=== PATIENT | male | born 1955 | race Caucasian/White ===

== ENCOUNTER 2017-02-21 09:41 | Observation (INO) ==
--- NOTE | 2017-02-21 10:02 | Emergency Department Note ---
Neuro HPI - General Chief Complaint: Stroke Symptoms Stated Complaint: L sided droop an weakness Time Seen by Provider: 02/21/17 10:00 Source: patient, EMS Mode of arrival: EMS - History of Present Illness HPI Narrative: Sitting at home, noticed it was hot and went to get up to open a window or door. He was looking at the computer and he noticed left leg weakness, also his speech was slightly slurred and EMS was called. EMS reported slurred speech , left-sided facial droop, left arm weakness as well as left leg weakness. He was unable to stand on his left leg. His symptoms resolved pretty much as he was picked up by EMS and loaded onto the gurney. He does smoke one pack a day, history of NC, history of coronary disease, he normally is supposed to take one regular aspirin and he has not been taking this recently. On Anticoagulants: No - Related Data Home Medications: Home Medications Medication Instructions Recorded Confirmed No Known Home Meds [No Known Home 02/21/17 02/21/17 Meds] Allergies/Adverse Reactions: Allergies Allergy/AdvReac Type Severity Reaction Status Date / Time No Known Drug Allergies Allergy Unverified 02/21/17 09:48 Review of Systems All systems ED: reviewed and negative except as stated. Constitutional: Denies: fever, chills ENT ED: Denies: throat pain Cardiovascular: Denies: chest pain, palpitations Respiratory: Denies: cough Gastrointestinal: Denies: abdominal pain Neurological: Reports: weakness, numbness, paresthesias, abnormal gait. Denies : headache, confusion Hematological/Lymphatic: Denies: easy bleeding Allergic/Immunologic: Denies: facial swelling Past Medical History - Past Medical History Source: old records reviewed, nursing notes reviewed Medical history: Reports: coronary artery disease Surgical history ED: Reports: non-contributory Family history: Reports: CAD/NC - Social History smoking status: Current every day smoker Alcohol use: Reports: Rarely Drug use: Reports: none Physical Exam - General Limitations: no limitations General appearance: alert, in no apparent distress - Head Head exam: atraumatic, normocephalic, normal inspection - Eye Eye exam: Present: normal appearance, PERRL, EOMI. Absent: conjunctival injection - ENT ENT exam: normal exam, normal oropharynx, mucous membranes moist, TM's normal bilaterally, normal external ear exam - Neck Neck exam: Present: normal inspection, full ROM, trachea midline - Chest Chest inspection: Present: normal inspection, symmetric chest wall rise - Respiratory Respiratory exam: Present: normal lung sounds bilaterally. Absent: respiratory distress - Cardiovascular Cardiovascular exam: Present: regular rate, normal rhythm - Abdominal Exam Abdominal exam: Present: soft, normal bowel sounds. Absent: distention, tenderness - Extremities Exam Extremities exam: Present: normal inspection, full ROM - Back Exam Back exam: Present: normal inspection, full ROM. Absent: CVA tenderness (R), CVA tenderness (L), vertebral tenderness - Neurological Exam Neurological exam: Present: alert, oriented X3, CN II-XII intact, motor sensory deficit, reflexes normal, other (minimal weakness left hand as compared to the right side, he has full strength in his lower no facial droop.) - Psychiatric Psychiatric exam: Present: normal affect, normal mood - Skin Skin exam: Present: warm, dry, intact, normal color. Absent: rash, cyanosis, pallor Course - Reevaluation(s) Reevaluation #1: patient started on aspirin after h after head CT was read as negative. His symptoms did briefly recur but then spontaneously went away again. His ABCD score was 5, his stroke scale was 0-1. Vital Signs Temperature 98.2 F 02/21/17 09:43 Pulse Rate 87 02/21/17 09:43 Respiratory Rate 16 02/21/17 09:43 Blood Pressure 179/105 02/21/17 09:43 Pulse Oximetry (%) 97 02/21/17 09:43 Temperature 98.2 F 02/21/17 09:43 Pulse Rate 75 02/21/17 11:08 Respiratory Rate 26 H 02/21/17 11:08 Blood Pressure 160/84 02/21/17 11:01 Pulse Oximetry (%) 95 02/21/17 11:08 Neuro Symptoms/Deficit - MDM Narrative Medical decision making narrative: Final diagnosis is TIA. Blood pressure did come down to 150/87. This was without further intervention. Head CT was read as negative by Dr. Guzman, at this point he will be admitted for further stroke workup. Discussed with Dr. Morrow - Lab Data Lab results reviewed: Yes I reviewed the patient's lab results. Result diagrams: 02/21/17 09:50 02/21/17 09:50 Lab Results 02/21/17 02/21/17 02/21/17 Range/Units 09:50 09:50 09:50 WBC 7.9 (4.5-11.0) K/mcL RBC 4.73 (4.50-5.90) M/mcL Hgb 16.2 (13.5-16.5) g/dL Hct 47.8 (41.0-55.0) % POC Hct 49.0 (41.0-55.0) % MCV 101.2 H (80.0-100.0) fL MCH 34.3 H (26.0-34.0) pg MCHC 33.9 (31.0-36.0) g/dL RDW 14.9 H (11.5-14.5) % Plt Count 369 (140-440) K/mcL MPV 6.2 L (7.4-10.4) fL Gran % 65.7 (38.0-78.0) % Lymph % (Auto) 22.9 (15.5-49.0) % [place] % (Auto) 8.7 (1.0-12.0) % Eos % (Auto) 2.3 (0.0-7.0) % Baso % (Auto) 0.4 (0.0-2.0) % Gran # 5.2 (1.8-8.0) K/mcL Lymph # (Auto) 1.8 (1.5-4.8) K/mcL [place] # (Auto) 0.7 (0.1-0.9) K/mcL Eos # (Auto) 0.2 (0.0-0.7) K/mcL Baso # (Auto) 0 (0.0-0.3) K/mcL POC PT 12.3 (11.9-14.5) sec POC INR 1.0 (0.9-1.2) APTT 31 (20-37) sec POC Sodium 139 (133-145) mmol/L Sodium 137 (133-145) mmol/L POC Potassium 4.0 (3.3-5.1) mmol/L Potassium 4.0 (3.3-5.1) mmol/L POC Chloride 104 (96-108) mmol/L Chloride 101 (96-108) mmol/L Carbon Dioxide 22 (22-30) mmol/L POC Total CO2 24 (22-30) mmol/L Anion Gap 14.0 (8-16) POC BUN 11 (8-23) mg/dl BUN 12 (8-23) mg/dl Creatinine 1.1 (0.7-1.2) mg/dl POC Creatinine 1.2 (0.7-1.2) mg/dl GFR Calculation 71 Glucose 101 (70-105) mg/dL POC Glucose 102 (70-105) mg/dL Calcium 9.3 (8.6-10.4) mg/dl POC WB Ioniz Calcium 1.16 (1.16-1.32) mmol/L Total Bilirubin 0.3 (0.0-1.0) mg/dL AST 16 (0-37) U/l ALT 16 (0-40) U/l Alkaline Phosphatase 130 H (39-117) U/L Troponin T (0-0.03) ng/ml Total Protein 7.7 (5.9-8.4) gm/dL Albumin 3.9 (3.2-5.2) gm/dL Globulin 3.8 H (2.2-3.7) gm/dL Albumin/Globulin Ratio 1.0 (1.0-2.3) 02/21/17 Range/Units 09:50 WBC (4.5-11.0) K/mcL RBC (4.50-5.90) M/mcL Hgb (13.5-16.5) g/dL Hct (41.0-55.0) % POC Hct (41.0-55.0) % MCV (80.0-100.0) fL MCH (26.0-34.0) pg MCHC (31.0-36.0) g/dL RDW (11.5-14.5) % Plt Count (140-440) K/mcL MPV (7.4-10.4) fL Gran % (38.0-78.0) % Lymph % (Auto) (15.5-49.0) % [place] % (Auto) (1.0-12.0) % Eos % (Auto) (0.0-7.0) % Baso % (Auto) (0.0-2.0) % Gran # (1.8-8.0) K/mcL Lymph # (Auto) (1.5-4.8) K/mcL [place] # (Auto) (0.1-0.9) K/mcL Eos # (Auto) (0.0-0.7) K/mcL Baso # (Auto) (0.0-0.3) K/mcL POC PT (11.9-14.5) sec POC INR (0.9-1.2) APTT (20-37) sec POC Sodium (133-145) mmol/L Sodium (133-145) mmol/L POC Potassium (3.3-5.1) mmol/L Potassium (3.3-5.1) mmol/L POC Chloride (96-108) mmol/L Chloride (96-108) mmol/L Carbon Dioxide (22-30) mmol/L POC Total CO2 (22-30) mmol/L Anion Gap (8-16) POC BUN (8-23) mg/dl BUN (8-23) mg/dl Creatinine (0.7-1.2) mg/dl POC Creatinine (0.7-1.2) mg/dl GFR Calculation Glucose (70-105) mg/dL POC Glucose (70-105) mg/dL Calcium (8.6-10.4) mg/dl POC WB Ioniz Calcium (1.16-1.32) mmol/L Total Bilirubin (0.0-1.0) mg/dL AST (0-37) U/l ALT (0-40) U/l Alkaline Phosphatase (39-117) U/L Troponin T < 0.01 (0-0.03) ng/ml Total Protein (5.9-8.4) gm/dL Albumin (3.2-5.2) gm/dL Globulin (2.2-3.7) gm/dL Albumin/Globulin Ratio (1.0-2.3) Disposition Clinical Impression: TIA (transient ischemic attack) Disposition: Xfer As Outpt/Obs ([facility]) Condition: Undetermined
[2017-02-21] MEDS ORDERED: SIMVASTATIN 40 MG TABLET PO ONE (10:13)
[2017-02-21] MEDS ORDERED: ASPIRIN 81 MG TAB.CHEW ONE (10:14)
--- NOTE | 2017-02-21 10:17 | Cat Scan Report ---
CLINICAL INFORMATION: Left-sided weakness. Aphasia. Symptoms are improving COMPARISON: None. TECHNIQUE: Axial noncontrast-enhanced images through the brain. FINDINGS: No acute intracranial hemorrhage. No subdural or epidural hematoma. No subarachnoid hemorrhage. No intra-axial hematoma. No focal intra-axial attenuation abnormalities. No localized mass effect. No midline shift. Brain volume is normal. No hydrocephalus. Basilar cisterns are normal. No hyperdense middle cerebral artery sign. Brainstem and cerebellum are negative. No calvarial fracture. No lytic lesion. Skull base is negative IMPRESSION: Negative noncontrast enhanced brain CT scan Interpreted and Authenticated by: Polo Guzman 02/21/17
[2017-02-21] MEDS ORDERED: ASPIRIN 81 MG TAB.CHEW CHEWED ONE (10:25)
[2017-02-21 10:28] LABS: Basophils # (Auto) 0 K/mcL (0.0-0.3); Basophils % (Auto) 0.4 % (0.0-2.0); Eosinophils # (Auto) 0.2 K/mcL (0.0-0.7); Eosinophils % (Auto) 2.3 % (0.0-7.0); Granulocytes % (Auto) 65.7 % (38.0-78.0); Lymphocytes # (Auto) 1.8 K/mcL (1.5-4.8); Lymphocytes % (Auto) 22.9 % (15.5-49.0); Mean Cell Volume 101.2 fL (80.0-100.0); Mean Corpuscular HGB Conc 33.9 g/dL (31.0-36.0); Mean Corpuscular Hemoglobin 34.3 pg (26.0-34.0); Monocytes # (Auto) 0.7 K/mcL (0.1-0.9); Monocytes % (Auto) 8.7 % (1.0-12.0); Platelet Count 369 K/mcL (140-440); RBC 4.73 M/mcL (4.50-5.90); Red Cell Distribution Width 14.9 % (11.5-14.5)
[2017-02-21 10:51] LABS: ALT/SGPT 16 U/l (0-40); Albumin 3.9 gm/dL (3.2-5.2); Alkaline Phosphatase 130 U/L (39-117); Blood Urea Nitrogen 12 mg/dl (8-23)
[2017-02-21] MEDS ORDERED: LACTATED RINGERS 1,000 ML IV ONE (11:28)
[2017-02-21] MEDS ORDERED: ACETAMINOPHEN 325 MG TABLET PO PRN (12:14)
[2017-02-21] MEDS ORDERED: IPRATROPIUM/ALBUTEROL 3 ML AMPUL.NEB NEB PRN (12:14)
[2017-02-21] MEDS ORDERED: ONDANSETRON 4 MG/2 ML VIAL IV PRN (12:14)
[2017-02-21] MEDS ORDERED: NALOXONE HCL 0.4 MG/ML VIAL IV PRN (12:14)
[2017-02-21] MEDS ORDERED: oxyCODONE/APAP 5/325MG TABLET PO PRN (12:14)
--- NOTE | 2017-02-21 12:41 | Internal Med History&Physical ---
Medical - H&P: HPI Patient information: Note initiated : 02/21/17 at 12:38 pm Service Date, if different from initiated Date: [] Patient: Sandro Ingram a 61 y/o M admitted on 02/21/17 for L sided droop an weakness. Chief Complaint: [] History of present illness: Mr. Ingram is a 61 year old Male with h/o cad, s/p mi and stent plaement presents to the ER due to episode of weakness The patient was sitting in his house talking with his significant other, at around 9.10, the patient turned around to get up but noted that his legs were too weak to get up, his left leg had no strength, he also noted weakness in the left arm, his words were slurry, and he had some deviation of the face. The patients significant other called 911, and within 15-20 mins the patients symptoms had comletely resolved, his NIH score was 1 at the time he was in the ER. He also reported tingling numbness in the left arm and leg. The patient was fully aware of what was going on. The patient in the ER after the CT ntoed that he likely and another episode in which his face was deviated and he had some tingling numbness return, but this episode lasted only for a few minutes. Based on discussion with ER, tele stroke was not activated, he was asa and statin and admitted to the hospital for further management. The patient has only chr c ough, but denies any other symptom. - Constitutional Additional comments: CONSTITUTIONAL: No weight loss, fever, chills, weakness or fatigue. HEENT: Eyes: No visual loss, blurred vision, double vision or yellow sclerae. Ears, Nose, Throat: No hearing loss, sneezing, congestion, runny nose or sore throat. SKIN: No rash or itching. CARDIOVASCULAR: No chest pain, chest pressure or chest discomfort. No palpitations or edema. RESPIRATORY: No shortness of breath, chr smokers c ough present. GASTROINTESTINAL: No nausea, vomiting or diarrhea or constipation. No abdominal pain or blood in stools No Karen. GENITOURINARY: Denies Burning on urination. Blood. The weakness on left side as noted in HPI MUSCULOSKELETAL: No muscle, back pain, joint pain or stiffness. HEMATOLOGIC: No bleeding or bruising. No enlarged nodes PSYCHIATRIC: No depression or anxiety. ENDOCRINOLOGIC: No reports of sweating, cold or heat intolerance. No polyuria or polydipsia. ALLERGIES: No hives, eczema or rhinitis. Skin: No rash, no jaundice, cyanosis or pallor. Medical - H&P: PMH Medical history: h/o cad mi s/p stent, not taking aspirin (due to his own stubborness as per him) Surgical history: left shoulder surgery. Pertinent family history: mother diet in sleep due to some clot issue Father with rheumatic heart disease, s/p valve replacement and has pacemaker. No h/o cva in family. Social history: lives with significant other smoker, 50 pack yr, no etoh denies recreational drug use. Medical - H&P: Meds Home Medications Medication Instructions Recorded Confirmed Type No Known Home Meds [No Known Home 02/21/17 02/21/17 History Meds] Allergies Allergy/AdvReac Type Severity Reaction Status Date / Time No Known Drug Allergies Allergy Verified 02/21/17 12:15 Medical - H&P: Exam - Constitutional Vitals: Temp Pulse Resp BP Pulse Ox 98.2 F 64 23 H 161/89 95 02/21/17 09:43 02/21/17 11:33 02/21/17 11:33 02/21/17 11:31 02/21/17 11:33 Exam: GENERAL: The patient is a well-developed, well-nourished in no apparent distress. Is alert and oriented x3. VITAL SIGNS: Reviewed and as noted elsewhere. HEENT: Head is normocephalic and atraumatic. Extraocular muscles are intact. Pupils are equal, round, and reactive to light. Nares appeared normal. Mouth appears any without lesions. Mucous membranes are moist. NECK: Normal to inspection, Supple, No lymphadenopathy or thyromegaly. LUNGS: Air entry equal on both sides, no wheezing, crackles or rhonchi noted. No accessory muscles of respiration HEART: Regular rate and rhythm normal, S1 and S2 heard, no Gallop, S3 or Rub Noted, No Gross murmur heard. ABDOMEN: Soft, nontender, and nondistended. Positive bowel sounds. No hepatosplenomegaly was noted. EXTREMITIES: No cyanosis, clubbing, rash, lesions or edema. NEUROLOGIC: Cranial nerves II through XII are grossly intact. Motor and Sensory System Grossly Intact PSYCHIATRIC: Normal affect, Normal Mood. Appropriate Behavior. SKIN: No ulceration or wounds noted, No jaundice, No rash noted. Medical - H&P: Reslt - Labs CBC & Chem 7: 02/21/17 09:50 02/21/17 09:50 - EKG Data Prior EKG available for review: no EKG comments: 02/21/17 12:44 sinus rhythm q wave s in 2, 3 and avf, incomplete rbbb likely old inf mi 02/21/17 12:45 Medical - H&P: A/P - Narrative A/P Narrative: A/P TIA: 2 episodes high risk for repeat TIA, will get mri head, mra head and neck, echo, monitor on tele, ASA given, statin given, check lipid, and a1c, monitor bp for now, consider starting on keegan for bp if remains high. CAD: no cp, ekg shows no significant changes. on asa and statin, DVT hep sq Diet cardiac full code.
--- NOTE | 2017-02-21 12:54 | XRay Report ---
CLINICAL INFORMATION: Possible stroke. Cough. TECHNIQUE: AP portable upright chest x-ray COMPARISON: None. FINDINGS: Lungs are negative. No parenchymal infiltrate or mass. Heart size and vascularity are normal. No pulmonary edema. No pulmonary congestion. Christen and mediastinum are negative. IMPRESSION: Negative AP portable chest x-ray Interpreted and Authenticated by: oPlo Guzman 02/21/17
[2017-02-21 13:40] LABS: Appearance,Urine CLEAR; Bilirubin,Urine NEG (NEG); Color,Urine YELLOW; Glucose,Urine (UA) NEGATIVE (NEG); Leukocyte Esterase,Urine NEG /uL (NEG); Nitrate,Urine NEG (NEG); Protein,Urine NEG (NEG); Specific Gravity,Urine 1.011 (1.000-1.035); Urine Blood NEG mg/dL (<0.03); Urobilinogen,Urine NEG (NEG)
[2017-02-21 13:55] LABS: Hemoglobin A1C 5.5 % HGB (4.0-6.0)
[2017-02-21] MEDS: HEPARIN 5,000 UNIT/ML VIAL SQ SCH (20:51)
[2017-02-22 05:08] LABS: Basophils # (Auto) 0.1 K/mcL (0.0-0.3); Basophils % (Auto) 0.8 % (0.0-2.0); Eosinophils # (Auto) 0.3 K/mcL (0.0-0.7); Eosinophils % (Auto) 3.8 % (0.0-7.0); Granulocytes % (Auto) 60.2 % (38.0-78.0); Lymphocytes # (Auto) 1.8 K/mcL (1.5-4.8); Lymphocytes % (Auto) 26.8 % (15.5-49.0); Mean Cell Volume 100.5 fL (80.0-100.0); Mean Corpuscular HGB Conc 34.3 g/dL (31.0-36.0); Mean Corpuscular Hemoglobin 34.4 pg (26.0-34.0); Monocytes # (Auto) 0.6 K/mcL (0.1-0.9); Monocytes % (Auto) 8.4 % (1.0-12.0); Platelet Count 342 K/mcL (140-440); RBC 4.64 M/mcL (4.50-5.90); Red Cell Distribution Width 14.9 % (11.5-14.5)
[2017-02-22 05:50] LABS: ALT/SGPT 13 U/l (0-40); Albumin 3.6 gm/dL (3.2-5.2); Alkaline Phosphatase 122 U/L (39-117); Bilirubin,Direct < 0.2 mg/dL (0.0-0.3); Blood Urea Nitrogen 12 mg/dl (8-23); Gamma Glutamyl Transpeptidase 28 U/L (8-61); Magnesium 2.1 mg/dL (1.6-2.5); Uric Acid 5.6 mg/dL (2.5-8.0)
[2017-02-22] MEDS: HEPARIN 5,000 UNIT/ML VIAL SQ SCH (08:38)
[2017-02-22] MEDS ORDERED: ASPIRIN 325 MG ENTERIC COATED TABLET PO SCH (09:00)
--- NOTE | 2017-02-22 10:54 | Magnetic Resonance Report ---
CLINICAL INFORMATION: TIA TECHNIQUE: Sagittal, axial, coronal images of the brain both before and after intravenous administration of 10 mL gadolinium COMPARISON: Previous brain CT scan dated 02/21/2017 FINDINGS: Diffusion-weighted images demonstrate a very small focus of restricted diffusion in the right putamen. This measures 4 mm. There is a focal associated ADC abnormality. There is mild contrast enhancement. Appearance is consistent with an acute but not subacute lacunar infarction. There is a 2nd area of mildly increased signal intensity on diffusion-weighted images. There appears to be an associated ADC abnormality. This is at the vertex in the posterior right frontal lobe and appears cortical. This measures 10 mm. There may be mild associated enhancement although this is not definite. This abnormality is suspicious for a small focal infarction. There is diffuse white matter abnormality with multiple foci of increased signal intensity in the subcortical and periventricular white matter both hemispheres. Findings are consistent with small vessel ischemic change. No other focal areas of restricted diffusion or enhancement. No localized mass effect. No midline shift. White matter abnormality is prominent for age and clinical correlation for hypertension or diabetes recommended. Brainstem and cerebellum are negative Brain volume is within normal limits. No hydrocephalus. No extra-axial, intracranial abnormalities. No pathologic leptomeningeal or dural enhancement. Normal flow void within vessels at the base of the brain. There is inflammatory disease in the mastoid sinuses bilaterally, right worse than left. Skull base is otherwise negative. Paranasal sinuses are otherwise negative. IMPRESSION: 1. Acute but not hyperacute 4 mm lacunar infarction in the right putamen 2. Possible 10 mm infarction in the posterior right frontal lobe at the vertex. This is not a definite abnormality White matter abnormality is somewhat advanced for age. Clinical correlation for diabetes or hypertension recommended. Interpreted and Authenticated by: Polo Guzman 02/22/17
--- NOTE | 2017-02-22 11:22 | Magnetic Resonance Report ---
CLINICAL INFORMATION: TIA. Left-sided weakness. TECHNIQUE: 2-D [id number] imaging of the cervical great vessels. 10 mL gadolinium injected COMPARISON: None. FINDINGS: Origin of the left common carotid artery is suboptimally visualized but on source images appears normal. No stenosis. Common carotid arteries are negative bilaterally. Proximal internal carotid arteries are negative. No significant luminal irregularity. No stenosis. No ulcerated plaque. Cervical internal carotid arteries are negative and bilaterally symmetric. Vertebral arteries are negative. No stenosis. Aortic arch is not well visualized but there is no definite abnormality. Origins of the left subclavian artery, left common carotid artery, innominate artery, right common carotid artery, right subclavian artery are negative. IMPRESSION: Negative carotid MRA. No stenosis. No significant luminal irregularity or ulceration Interpreted and Authenticated by: Polo Guzman 02/22/17
--- NOTE | 2017-02-22 11:25 | Magnetic Resonance Report ---
CLINICAL INFORMATION: TIA. Left-sided weakness TECHNIQUE: 3-D [id number] imaging of the [place] COMPARISON: None. FINDINGS: Petrous, cavernous, supraclinoid segments of the internal carotid arteries are normal and bilaterally symmetric. M1 segments of the middle cerebral arteries are negative. No focal stenosis. A1 segments of the anterior cerebral arteries are normal. Intracranial vertebral arteries and basilar artery are negative. Posterior cerebral arteries and superior cerebellar arteries are negative. No intracranial aneurysm IMPRESSION: Negative MRA of the [place] Interpreted and Authenticated by: Polo Guzman 02/22/17
--- NOTE | 2017-02-22 11:49 | Discharge Summary ---
Medical - DS: Prov Patient information: Note initiated : 02/22/17 at 11:48 am Patient: Sandro Ingram a 62 y/o M admitted on 02/21/17 for L sided droop an weakness. Date of admission: 02/21/17 11:37 Discharge date: 02/22/17 Admitting clinician: Tonia Rucker Attending physician on discharge: Shanice Enriquez Medical - DS: Meds - Discharge Medications Prescriptions: Atorvastatin [Lipitor] 20 mg PO HS #30 tablet Active and Home Medications: Discharge medications: Lipitor 20 mg p.o. nightly Aspirin 325 mg p.o. daily Tylenol 650 mg p.o. every 6 hours as needed Previous home Medications: No Known Home Meds [No Known Home Meds] 02/21/17 [History Confirmed 02/21/17 Last Taken Unknown] Medical - DS: Hosp Hospital course: Mr. Ingram is a 62 year old M February 21, 2017:History of present illness: Mr. Ingram is a 61 year old Male with h/o cad, s/p mi and stent placement , presents to the ER due to episode of weakness The patient was sitting in his house talking with his significant other, at around 9.10, the patient turned around to get up but noted that his legs were too weak to get up, his left leg had no strength, he also noted weakness in the left arm, his words were slurry, and he had some deviation of the face. The patients significant other called 911, and within 15-20 mins the patients symptoms had completely resolved, his NIH score was 1 at the time he was in the ER. He also reported tingling numbness in the left arm and leg. The patient was fully aware of what was going on. The patient in the ER after the CT noted that he likely and another episode in which his face was deviated and he had some tingling numbness return, but this episode lasted only for a few minutes. Based on discussion with ER, tele stroke was not activated, he was asa and statin and admitted to the hospital for further management. February 22, 2017: Hospital course: The patient did well overnight. Vital signs were fairly stable. He has so far tolerated the initiation of aspirin and a statin. He feels well today, and denies any further numbness or tingling or weakness. He denies mental status changes or slurred speech. He otherwise denies fever or chills, headaches or dizziness, sore throat, chest pain or palpitations or shortness of breath, GI or symptoms. He does admit that he was still smoking up until yesterday. He promises to quit as of yesterday. On exam, he is a well-developed well-nourished man in no acute distress. Head is normocephalic atraumatic. Neck is supple without obvious lymphadenopathy or JVD. No bruits were noted. Cardiac exam shows regular rate and rhythm. Lungs are clear to auscultation. Abdomen is soft and nontender. Extremities show no edema. Neurologic exam: Patient is alert and oriented 3. Mood and affect appear normal. Cranial nerves are grossly intact. Motor strength appears symmetric and intact throughout. Cerebellar exam shows no donator drift. Finger to finger exam is intact. No tremors noted. Exam is otherwise grossly nonfocal. - Narrative A/P Narrative: #1. Neuro. -The patient is status post TIA 2. He has known vascular disease, and was not taking aspirin or a statin at home. Lipitor 20 mg nightly and aspirin 325 mg daily have been initiated. The patient is strongly encouraged to be compliant with medications. He is strongly discouraged from continuing smoking. -He will need to see his primary care physician in the next week or so for recheck and to follow-up on blood pressure. Blood pressure was high yesterday, but is back to normal today. Some consideration could be given to starting him on an SONIA inhibitor with or without HCTZ, to further lower his risk of stroke. Echocardiogram and MRA of his brain and neck did not show any obvious source for TIA/stroke. #2. CAD: no cp, ekg shows no significant changes. Continue on asa and statin. #3. DVT reflexes: Hep sq -Diet cardiac #4. Full code. #5. MCV is elevated. Consider adding a B complex supplement, or multivitamin, or checking a B12 and folate level. Discharge diagnosis: TIA 2. Cardiovascular and cerebrovascular disease. Hyperlipidemia Time spent discussing smoking cessation with patient: 3 to 10 minutes - Time Spent with Patient Total time spent providing and/or coordinating discharge services: Medical - DS: Exam - Constitutional Vitals: Vital Signs Temp Pulse Pulse Resp BP BP Pulse Ox 02/22/17 10:41 137/86 02/22/17 08:00 97.6 F 58 L 16 95 02/22/17 04:00 98.7 F 16 146/78 92 02/22/17 00:00 98.3 F 16 130/81 92 02/21/17 20:00 98.4 F 12 152/78 152/78 91 02/21/17 18:53 64 95 02/21/17 16:00 151/84 02/21/17 15:41 96.9 F L 16 96 02/21/17 12:00 97.4 F 74 18 153/79 94 02/21/17 11:55 97.4 F 74 18 153/79 94 Intake and Output 02/21/17 02/22/17 02/22/17 21:59 05:59 13:59 Intake Total 240 / 240 Output Total 875 / 875 325 / 325 Balance -635 / -635 -325 / -325 Intake: Oral 240 / 240 Output: Void Amount 875 / 875 325 / 325 Other: Meal Dinner Percent of Meal Consumed 100% Feeding Ability Independent Weight 158 lb 14.4 oz Medical - DS: Data Labs on day of discharge: Labs from last 24 hours 02/22/17 02/22/17 02/21/17 04:08 04:08 13:26 WBC 6.8 RBC 4.64 Hgb 16.0 Hct 46.7 MCV 100.5 H MCH 34.4 H MCHC 34.3 RDW 14.9 H Plt Count 342 MPV 6.4 L Gran % 60.2 Lymph % (Auto) 26.8 Petroleum % (Auto) 8.4 Eos % (Auto) 3.8 Baso % (Auto) 0.8 Gran # 4.1 Lymph # (Auto) 1.8 Petroleum # (Auto) 0.6 Eos # (Auto) 0.3 Baso # (Auto) 0.1 Sodium 136 Potassium 4.4 Chloride 103 Carbon Dioxide 23 Anion Gap 10.0 BUN 12 Creatinine 1.1 GFR Calculation 71 Glucose 91 Uric Acid 5.6 Calcium 9.0 Phosphorus 2.7 Magnesium 2.1 Total Bilirubin 0.5 Direct Bilirubin < 0.2 GGT 28 AST 15 ALT 13 Alkaline Phosphatase 122 H Lactate Dehydrogenase 179 Total Protein 7.2 Albumin 3.6 Globulin 3.6 Albumin/Globulin Ratio 1.0 Triglycerides 200 H Urine Color Yellow Urine Appearance Clear Urine pH 6.0 Ur Specific [place] 1.011 Urine Protein Neg Urine Glucose (UA) Negative Urine Ketones Neg Urine Occult Blood Neg Urine Nitrate Neg Urine Bilirubin Neg Urine Urobilinogen Neg Ur Leukocyte Esterase Neg Ur Culture Indicated? No Hemoglobin A1c was normal at 5.5%. Troponin was normal at less than 0.01 Total cholesterol was elevated at 204, LDL cholesterol above goal at 127, non- HDL cholesterol is elevated at 156. HDL is normal at 48. TSH was normal at 0.89 Urinalysis was normal. MRSA screen was negative. Echocardiogram shows normal size left ventricle, with mildly reduced LV function and ejection fraction of 40-45%. There is hypokinesis of the basal to apical inferolateral wall, and borderline aortic root dilation. No vegetations are reported. EKG: Shows normal sinus rhythm at a rate of 86. Left axis deviation and left anterior fascicular block are noted. Inferior Q waves are noted. No acute ischemic changes are noted. Chest x-ray is read as normal. Neck MRA: Is negative for stenosis or ulceration. Brain MRA is read as normal. MRI of the brain does show subacute 4 mm lacunar infarct of the right putamen. Possible 10 mm infarction in the posterior right frontal lobe at the vertex, but this is not definite. White matter abnormalities somewhat advanced for age. Head CT without contrast was negative. Medical - DS: A/P - Patient/Caregiver Discharge Instructions Activity: increase activity as tolerated Diet: Low Sodium (2gm) Additional Instructions: 1. You appear to have had a TIA, "mini stroke". -Please take aspirin 325 mg every day. -Please take Lipitor or another statin drug, every evening, from now on. -You absolutely need to stop smoking immediately. 2. Please follow-up with your primary care physician to recheck on your symptoms, and to be sure your blood pressure remains normal. #3. Your red blood cell count is mildly abnormal, with large red blood cells. He may be deficient in either vitamin B12 or folate. Consider adding either a B complex supplement or a multivitamin, to your daily regimen of pills. Prescriptions: Atorvastatin [Lipitor] 20 mg PO HS #30 tablet - Follow up Plan Follow up with: Tati Reyes MD [Physician] - 03/10/17 11:00 am (Please arrive 15 min. early.) Disposition: Home, Self-Care Prognosis: Good Rehab Potential: Good Overall status at discharge: patient is back to baseline Medical - DS: Qual - VTE Deep Vein Thrombosis/Pulmonary Embolism Present on Admission: No
== END 2017-02-22 13:55 | disposition home or self-care (01) ==
LOC: ED 09:41 → ICU 09:41 → SUATTDRO 11:37 → ICU 11:59
PROVIDERS: ADMIT Internal Medicine; ATTEND Internal Medicine

== ENCOUNTER 2024-12-25 14:54 | Observation (INO) ==
[2024-12-25] MEDS ORDERED: IOPAMIDOL 100 ML BOTTLE IV ONE (14:55)
[2024-12-25] MEDS: ONDANSETRON 4 MG/2 ML VIAL IV ONE (15:59)
[2024-12-25] MEDS: 0.9 % SODIUM CHLORIDE 1,000 ML IV ONE (15:59)
[2024-12-25 16:30] LABS: Basophils # (Auto) 0.01 K/mcL (0.00-0.30); Basophils % (Auto) 0.1 % (0.0-2.0); Eosinophils # (Auto) 0 K/mcL (0.00-0.70); Eosinophils % (Auto) 0 % (0.0-7.0); Hematocrit 45.7 % (40.1-51.0); Hemoglobin 14.3 g/dL (13.7-17.5); Lymphocytes # (Auto) 0.73 K/mcL (1.50-4.80); Lymphocytes % (Auto) 5.1 % (15.5-49.0); Mean Cell Volume 92.5 fL (80.0-100.0); Mean Corpuscular HGB Conc 31.3 g/dL (31.0-36.0); Mean Platelet Volume 8.6 fL (8.8-12.5); Monocytes # (Auto) 0.81 K/mcL (0.10-0.90); Monocytes % (Auto) 5.6 % (1.0-12.0); Neutrophils % (Auto) 89.1 % (38.0-78.0); Platelet Count 349 K/mcL (140-440); RBC 4.94 M/mcL (4.63-6.08); Red Cell Distribution Width 16.2 % (11.5-14.5); WBC 14.3 K/mcL (4.5-11.0)
[2024-12-25 17:03] LABS: ALT/SGPT 9 U/L (<40); AST/SGOT 22 U/L (<40); Albumin 4.3 gm/dL (3.2-5.2); Albumin/Globulin Ratio 0.8 (1.0-2.3); Alkaline Phosphatase 189 U/L (39-117); Bilirubin,Total 0.4 mg/dL (0.1-1.0); Blood Urea Nitrogen 17 mg/dL (8-23); Calcium 10.5 mg/dL (8.6-10.4); Carbon Dioxide 21 mmol/L (22-30); Chloride 100 mmol/L (96-108); Globulin 5.3 gm/dL (2.2-3.7); Glomerular Filtration Rate 60; Glucose 126 mg/dL (70-105); Potassium 3.9 mmol/L (3.3-5.1); Sodium 138 mmol/L (133-145)
[2024-12-25] MEDS: morphine 2 MG/ML VIAL IV PRN (19:17)
[2024-12-25] MEDS: PIPERACILLIN SODIUM/TAZOBACTAM 4.5 GM in DEXTROSE 5% IN WATER 50 ML IV ONE (19:18)
[2024-12-26] MEDS: 0.9 % SODIUM CHLORIDE 1,000 ML IV SCH (03:16)
[2024-12-26] MEDS: ONDANSETRON 4 MG/2 ML VIAL IV ONE (04:02)
[2024-12-26] MEDS ORDERED: ACETAMINOPHEN 500 MG TABLET PO PRN (08:06)
[2024-12-26] MEDS ORDERED: morphine 2 MG/ML VIAL IV PRN (08:07)
[2024-12-26 08:49] LABS: ALT/SGPT 7 U/L (<40); AST/SGOT 15 U/L (<40); Albumin 3.1 gm/dL (3.2-5.2); Albumin/Globulin Ratio 0.8 (1.0-2.3); Alkaline Phosphatase 134 U/L (39-117); Bilirubin,Direct 0.2 mg/dL (<0.3); Bilirubin,Total 0.5 mg/dL (0.1-1.0); Blood Urea Nitrogen 16 mg/dL (8-23); Calcium 9.1 mg/dL (8.6-10.4); Carbon Dioxide 22 mmol/L (22-30); Chloride 105 mmol/L (96-108); Globulin 3.8 gm/dL (2.2-3.7); Glomerular Filtration Rate 60; Glucose 111 mg/dL (70-105); Lactate Dehydrogenase 140 U/L (135-225); Potassium 3.9 mmol/L (3.3-5.1); Sodium 136 mmol/L (133-145); Triglycerides 90 mg/dL (<150); Uric Acid 4.8 mg/dL (2.5-8.0)
[2024-12-26 08:58] LABS: Basophils # (Auto) 0.03 K/mcL (0.00-0.30); Basophils % (Auto) 0.2 % (0.0-2.0); Eosinophils # (Auto) 0.07 K/mcL (0.00-0.70); Eosinophils % (Auto) 0.6 % (0.0-7.0); Hematocrit 38.2 % (40.1-51.0); Hemoglobin 11.7 g/dL (13.7-17.5); Lymphocytes # (Auto) 1.15 K/mcL (1.50-4.80); Lymphocytes % (Auto) 9.5 % (15.5-49.0); Mean Cell Volume 93.9 fL (80.0-100.0); Mean Corpuscular HGB Conc 30.6 g/dL (31.0-36.0); Mean Platelet Volume 8.5 fL (8.8-12.5); Monocytes % (Auto) 8.3 % (1.0-12.0); Neutrophils % (Auto) 81.3 % (38.0-78.0); Platelet Count 260 K/mcL (140-440); RBC 4.07 M/mcL (4.63-6.08); Red Cell Distribution Width 16.8 % (11.5-14.5); WBC 12.1 K/mcL (4.5-11.0)
[2024-12-26] MEDS: AMPICILLIN SODIUM/SULBACTAM NA 3 GM in 0.9 % SODIUM CHLORIDE 100 ML IV SCH (09:14)
[2024-12-26] MEDS: IPRATROPIUM/ALBUTEROL 3 ML AMPUL.NEB NEB SCH (12:50)
[2024-12-26] MEDS: HYDROcodone/APAP 5/325MG TABLET PO PRN (12:55)
[2024-12-27] MEDS: ONDANSETRON 4 MG/2 ML VIAL IV PRN (06:55)
[2024-12-27 09:41] LABS: Basophils # (Auto) 0.05 K/mcL (0.00-0.30); Basophils % (Auto) 0.4 % (0.0-2.0); Eosinophils # (Auto) 0.17 K/mcL (0.00-0.70); Eosinophils % (Auto) 1.5 % (0.0-7.0); Hematocrit 36.3 % (40.1-51.0); Hemoglobin 11.1 g/dL (13.7-17.5); Lymphocytes % (Auto) 8.5 % (15.5-49.0); Mean Cell Volume 93.6 fL (80.0-100.0); Mean Corpuscular HGB Conc 30.6 g/dL (31.0-36.0); Mean Platelet Volume 8.3 fL (8.8-12.5); Monocytes # (Auto) 0.92 K/mcL (0.10-0.90); Monocytes % (Auto) 7.8 % (1.0-12.0); Neutrophils % (Auto) 81.6 % (38.0-78.0); Platelet Count 244 K/mcL (140-440); RBC 3.88 M/mcL (4.63-6.08); Red Cell Distribution Width 16.6 % (11.5-14.5); WBC 11.7 K/mcL (4.5-11.0)
[2024-12-27 10:04] LABS: ALT/SGPT 7 U/L (<40); AST/SGOT 14 U/L (<40); Albumin 3.2 gm/dL (3.2-5.2); Albumin/Globulin Ratio 0.8 (1.0-2.3); Alkaline Phosphatase 129 U/L (39-117); Bilirubin,Direct 0.3 mg/dL (<0.3); Bilirubin,Total 0.5 mg/dL (0.1-1.0); Blood Urea Nitrogen 14 mg/dL (8-23); Calcium 9.1 mg/dL (8.6-10.4); Carbon Dioxide 23 mmol/L (22-30); Chloride 105 mmol/L (96-108); Globulin 3.8 gm/dL (2.2-3.7); Glomerular Filtration Rate 67; Glucose 106 mg/dL (70-105); Lactate Dehydrogenase 142 U/L (135-225); Potassium 3.7 mmol/L (3.3-5.1); Sodium 138 mmol/L (133-145); Triglycerides 95 mg/dL (<150); Uric Acid 4.3 mg/dL (2.5-8.0)
[2024-12-27] MEDS: ENOXAPARIN 40 MG/0.4 ML SYRINGE SQ SCH (12:36)
[2024-12-27] MEDS: ALBUTEROL SULFATE 2.5 MG/3 ML NEBULIZER NEB PRN (22:00)
[2024-12-28 06:52] LABS: Basophils # (Auto) 0.02 K/mcL (0.00-0.30); Basophils % (Auto) 0.2 % (0.0-2.0); Eosinophils # (Auto) 0.26 K/mcL (0.00-0.70); Eosinophils % (Auto) 2.9 % (0.0-7.0); Hematocrit 34.6 % (40.1-51.0); Hemoglobin 10.6 g/dL (13.7-17.5); Lymphocytes # (Auto) 0.97 K/mcL (1.50-4.80); Mean Cell Volume 94.5 fL (80.0-100.0); Mean Corpuscular HGB Conc 30.6 g/dL (31.0-36.0); Monocytes # (Auto) 0.68 K/mcL (0.10-0.90); Monocytes % (Auto) 7.7 % (1.0-12.0); Neutrophils % (Auto) 78.2 % (38.0-78.0); Platelet Count 252 K/mcL (140-440); RBC 3.66 M/mcL (4.63-6.08); Red Cell Distribution Width 16.8 % (11.5-14.5); WBC 8.8 K/mcL (4.5-11.0)
[2024-12-28 07:40] LABS: ALT/SGPT 13 U/L (<40); AST/SGOT 20 U/L (<40); Albumin 2.8 gm/dL (3.2-5.2); Albumin/Globulin Ratio 0.7 (1.0-2.3); Alkaline Phosphatase 157 U/L (39-117); Bilirubin,Direct 0.2 mg/dL (<0.3); Bilirubin,Total 0.4 mg/dL (0.1-1.0); Blood Urea Nitrogen 13 mg/dL (8-23); Carbon Dioxide 24 mmol/L (22-30); Chloride 106 mmol/L (96-108); Globulin 4.2 gm/dL (2.2-3.7); Glomerular Filtration Rate 60; Glucose 108 mg/dL (70-105); Lactate Dehydrogenase 316 U/L (135-225); Phosphorous 3.5 mg/dL (2.5-4.5); Potassium 3.7 mmol/L (3.3-5.1); Sodium 140 mmol/L (133-145); Triglycerides 89 mg/dL (<150); Uric Acid 4.6 mg/dL (2.5-8.0)
[2024-12-28 08:45] VITALS: O2SAT 93
[2024-12-28] MEDS: AMOXICILLIN/POTASSIUM CLAV 875 MG TABLET PO SCH (10:58)
[2024-12-28 12:38] VITALS: TEMP 97.3
== END 2024-12-28 13:25 | disposition home health service (06) ==
LOC: ED 14:54 → MEDSUR 14:54
PROVIDERS: ADMIT Internal Medicine; ATTEND Internal Medicine

== ENCOUNTER 2025-05-18 04:10 | Inpatient (IN) ==
[2025-05-18] MEDS: ONDANSETRON 4 MG/2 ML VIAL IV ONE (04:28)
[2025-05-18 05:09] LABS: Basophils # (Auto) 0.03 K/mcL (0.00-0.30); Basophils % (Auto) 0.4 % (0.0-2.0); Eosinophils # (Auto) 0.32 K/mcL (0.00-0.70); Eosinophils % (Auto) 4.6 % (0.0-7.0); Hematocrit 35.5 % (40.1-51.0); Hemoglobin 11.6 g/dL (13.7-17.5); Lymphocytes # (Auto) 1.03 K/mcL (1.50-4.80); Lymphocytes % (Auto) 14.7 % (15.5-49.0); Mean Corpuscular HGB Conc 32.7 g/dL (31.0-36.0); Monocytes # (Auto) 0.55 K/mcL (0.10-0.90); Monocytes % (Auto) 7.8 % (1.0-12.0); Neutrophils % (Auto) 72.4 % (38.0-78.0); Platelet Count 248 K/mcL (140-440); RBC 4.04 M/mcL (4.63-6.08); WBC 7.0 K/mcL (4.5-11.0)
[2025-05-18 05:52] LABS: Anion Gap 11.0 (8.0-16.0); Blood Urea Nitrogen 19 mg/dL (8-23); Calcium 8.4 mg/dL (8.6-10.4); Carbon Dioxide 21 mmol/L (22-30); Chloride 108 mmol/L (96-108); Glucose 107 mg/dL (70-105); Potassium 3.8 mmol/L (3.3-5.1); Sodium 140 mmol/L (133-145)
[2025-05-18 06:33] LABS: INR 1.0 (0.9-1.1); Prothrombin Time 14.0 sec (11.9-14.5)
[2025-05-18] MEDS: DIAZEPAM 10 MG/2 ML SYRINGE IV ONE (06:56)
[2025-05-18] MEDS ORDERED: HYDROmorphone 0.5 MG/0.5 ML SYRINGE IV PRN ×2 (07:12→14:50)
[2025-05-18] MEDS ORDERED: ACETAMINOPHEN 325 MG TABLET PO PRN (07:12)
[2025-05-18] MEDS ORDERED: ONDANSETRON 4 MG/2 ML VIAL IV PRN ×3 (07:12→14:50)
[2025-05-18] MEDS ORDERED: DIAZEPAM 10 MG/2 ML SYRINGE IV PRN (07:12)
[2025-05-18] MEDS ORDERED: NALOXONE HCL 0.4 MG/ML VIAL IV PRN ×2 (07:12→14:50)
[2025-05-18] MEDS: HYDROmorphone 0.5 MG/0.5 ML SYRINGE IV ONE (07:33)
[2025-05-18] MEDS ORDERED: POTASSIUM CHLORIDE 40 MEQ in DEXTROSE 5% IN WATER 500 ML IV PRN (08:24)
[2025-05-18] MEDS ORDERED: MAGNESIUM SULFATE 2 GM/50 ML BAG IV PRN (08:24)
[2025-05-18] MEDS ORDERED: POLYETHYLENE GLYCOL 3350 17 GM PACKET PO PRN ×2 (08:24→14:40)
[2025-05-18] MEDS ORDERED: METOCLOPRAMIDE 10 MG/2 ML VIAL IV PRN (08:24)
[2025-05-18] MEDS ORDERED: POTASSIUM CHLORIDE 20 MEQ TABLET PO PRN ×2 (08:24)
[2025-05-18] MEDS ORDERED: SENNOSIDES 1 TABLET PO PRN (08:24)
[2025-05-18] MEDS ORDERED: IPRATROPIUM/ALBUTEROL 3 ML AMPUL.NEB NEB PRN (08:24)
[2025-05-18] MEDS ORDERED: LABETALOL HCL 20 MG/4 ML VIAL IV PRN (08:24)
[2025-05-18] MEDS: 0.9 % SODIUM CHLORIDE 1,000 ML IV SCH (08:32)
[2025-05-18] MEDS: DOCUSATE SODIUM 100 MG CAPSULE PO SCH ×2 (08:32→20:10)
[2025-05-18] MEDS: METHOCARBAMOL 1,000 MG/10 ML VIAL IV PRN ×2 (09:04→15:31)
[2025-05-18] MEDS ORDERED: fentaNYL 100 MCG/2 ML VIAL ONE (12:32)
[2025-05-18] MEDS ORDERED: PROPOFOL 200 MG/20 ML VIAL IV ONE (12:32)
[2025-05-18] MEDS ORDERED: DEXAMETHASONE 10 MG/ML VIAL ONE (12:34)
[2025-05-18] MEDS ORDERED: LIDOCAINE 2% PF 5 ML VIAL ONE (12:34)
[2025-05-18] MEDS ORDERED: TRANEXAMIC ACID 1,000 MG/10 ML VIAL ONE (12:34)
[2025-05-18] MEDS ORDERED: GLYCOPYRROLATE 0.2 MG/ML VIAL IV ONE (12:34)
[2025-05-18] MEDS ORDERED: ONDANSETRON 4 MG/2 ML VIAL ONE (12:34)
[2025-05-18] MEDS ORDERED: MAGNESIUM SULFATE 2 GM/50 ML BAG IV ONE (12:35)
[2025-05-18] MEDS ORDERED: FAMOTIDINE/PF 20 MG/2 ML VIAL IV ONE (12:35)
[2025-05-18] MEDS ORDERED: HYDROmorphone 0.5 MG/0.5 ML SYRINGE ONE (13:08)
[2025-05-18] MEDS: VANCOMYCIN 1,500 MG in 0.9 % SODIUM CHLORIDE 500 ML IV SCH (13:40)
[2025-05-18] MEDS: ceFAZolin 2 GM in DEXTROSE 5% IN WATER 50 ML IV SCH ×2 (13:45→18:39)
[2025-05-18] MEDS ORDERED: ePHEDrine 50 MG/5 ML SYRINGE (ANEST) IV ONE (14:02)
[2025-05-18] MEDS ORDERED: ESMOLOL 100 MG/10 ML VIAL IV ONE (14:09)
[2025-05-18] MEDS ORDERED: VASOPRESSIN 20 UNIT/ML VIAL ONE (14:09)
[2025-05-18] MEDS ORDERED: MAGNESIUM HYDROXIDE 30 ML ORAL.SUSP PO PRN (14:40)
[2025-05-18] MEDS ORDERED: BENZOCAINE/MENTHOL 1 LOZENGE PO PRN ×2 (14:40→14:50)
[2025-05-18] MEDS ORDERED: FLEETS ADULT 1 DOSE ENEMA PR PRN (14:40)
[2025-05-18] MEDS ORDERED: BISACODYL 10 MG SUPP.RECT PR PRN (14:40)
[2025-05-18] MEDS ORDERED: ALBUTEROL SULFATE 60 PUFF INHALER ONE (14:49)
[2025-05-18] MEDS ORDERED: fentaNYL 100 MCG/2 ML VIAL IV PRN (14:50)
[2025-05-18] MEDS ORDERED: LACTATED RINGERS 250 ML IV PRN (14:50)
[2025-05-18] MEDS: ACETAMINOPHEN 1,000 MG/100 ML BAG IV ONE (15:02)
[2025-05-18] MEDS: IPRATROPIUM/ALBUTEROL 3 ML AMPUL.NEB NEB PRN (16:17)
[2025-05-18] MEDS ORDERED: DEXMEDETOMIDINE 400 MCG in PREMIX 1 BAG IV PRN (17:15)
[2025-05-18] MEDS: GABAPENTIN 300 MG CAPSULE PO SCH (17:24)
[2025-05-18] MEDS: 0.9 % SODIUM CHLORIDE 10 ML SYRINGE IV SCH (17:51)
[2025-05-18] MEDS: LACTATED RINGERS 1,000 ML IV SCH (18:40)
[2025-05-18] MEDS: SENNOSIDES 1 TABLET PO SCH (20:10)
[2025-05-18] MEDS: ATORVASTATIN 20 MG TABLET PO SCH (20:41)
[2025-05-18] MEDS: MIRTAZAPINE 15 MG TABLET PO SCH (20:41)
[2025-05-18] MEDS: TAMSULOSIN 0.4 MG CAPSULE PO SCH (20:41)
[2025-05-18] MEDS: MUPIROCIN OINT 2% 22GM NARES SCH (20:42)
[2025-05-18] MEDS: ACETAMINOPHEN 325 MG TABLET PO PRN (20:42)
[2025-05-19 05:55] LABS: Basophils # (Auto) 0 K/mcL (0.00-0.30); Basophils % (Auto) 0 % (0.0-2.0); Eosinophils # (Auto) 0 K/mcL (0.00-0.70); Eosinophils % (Auto) 0 % (0.0-7.0); Hematocrit 35.0 % (40.1-51.0); Hemoglobin 10.5 g/dL (13.7-17.5); Lymphocytes # (Auto) 0.56 K/mcL (1.50-4.80); Lymphocytes % (Auto) 6.2 % (15.5-49.0); Mean Corpuscular HGB Conc 30.0 g/dL (31.0-36.0); Monocytes # (Auto) 0.50 K/mcL (0.10-0.90); Monocytes % (Auto) 5.6 % (1.0-12.0); Neutrophils % (Auto) 88.1 % (38.0-78.0); Platelet Count 245 K/mcL (140-440); RBC 3.93 M/mcL (4.63-6.08); WBC 9.0 K/mcL (4.5-11.0)
[2025-05-19 06:04] LABS: ALT/SGPT 30 U/L (<40); AST/SGOT 40 U/L (<40); Albumin 3.3 gm/dL (3.2-5.2); Albumin/Globulin Ratio 0.8 (1.0-2.3); Alkaline Phosphatase 142 U/L (39-117); Anion Gap 11.0 (8.0-16.0); Bilirubin,Direct < 0.2 mg/dL (0-0.3); Bilirubin,Total 0.3 mg/dL (0.1-1.0); Blood Urea Nitrogen 18 mg/dL (8-23); Calcium 8.9 mg/dL (8.6-10.4); Carbon Dioxide 20 mmol/L (22-30); Chloride 106 mmol/L (96-108); Globulin 3.9 gm/dL (2.2-3.7); Glucose 124 mg/dL (70-105); Phosphorous 3.1 mg/dL (2.5-4.5); Potassium 4.4 mmol/L (3.3-5.1); Sodium 137 mmol/L (133-145); Triglycerides 59 mg/dL (<150); Uric Acid 5.7 mg/dL (2.5-8.0)
[2025-05-19] MEDS ORDERED: PROPOFOL 200 MG/20 ML VIAL IV ONE (07:07)
[2025-05-19] MEDS: 0.9 % SODIUM CHLORIDE 1,000 ML IV ONE (08:00)
[2025-05-19] MEDS: PANTOPRAZOLE 40 MG TABLET PO SCH (08:08)
[2025-05-19] MEDS: FUROSEMIDE 100 MG/10 ML VIAL IV SCH (08:48)
[2025-05-19] MEDS: METOPROLOL SUCCINATE 25 MG TAB.XL.24H PO SCH (09:23)
[2025-05-19] MEDS: METHOCARBAMOL 750 MG TABLET PO PRN (09:43)
[2025-05-19] MEDS: FUROSEMIDE 40 MG/4 ML VIAL IV SCH (16:19)
[2025-05-20 06:18] LABS: Basophils # (Auto) 0.05 K/mcL (0.00-0.30); Basophils % (Auto) 0.6 % (0.0-2.0); Eosinophils # (Auto) 0.27 K/mcL (0.00-0.70); Eosinophils % (Auto) 3.1 % (0.0-7.0); Hematocrit 32.5 % (40.1-51.0); Hemoglobin 9.7 g/dL (13.7-17.5); Lymphocytes # (Auto) 1.61 K/mcL (1.50-4.80); Lymphocytes % (Auto) 18.4 % (15.5-49.0); Mean Corpuscular HGB Conc 29.8 g/dL (31.0-36.0); Monocytes # (Auto) 0.92 K/mcL (0.10-0.90); Monocytes % (Auto) 10.5 % (1.0-12.0); Neutrophils % (Auto) 67.2 % (38.0-78.0); Platelet Count 246 K/mcL (140-440); RBC 3.58 M/mcL (4.63-6.08); WBC 8.8 K/mcL (4.5-11.0)
[2025-05-20 06:47] LABS: ALT/SGPT 9 U/L (<40); AST/SGOT 27 U/L (<40); Albumin 3.1 gm/dL (3.2-5.2); Albumin/Globulin Ratio 0.8 (1.0-2.3); Alkaline Phosphatase 118 U/L (39-117); Anion Gap 8.0 (8.0-16.0); Bilirubin,Direct < 0.2 mg/dL (0-0.3); Bilirubin,Total 0.3 mg/dL (0.1-1.0); Blood Urea Nitrogen 28 mg/dL (8-23); Calcium 8.5 mg/dL (8.6-10.4); Carbon Dioxide 24 mmol/L (22-30); Chloride 106 mmol/L (96-108); Globulin 3.7 gm/dL (2.2-3.7); Glucose 106 mg/dL (70-105); Phosphorous 2.8 mg/dL (2.5-4.5); Potassium 4.2 mmol/L (3.3-5.1); Sodium 138 mmol/L (133-145); Triglycerides 69 mg/dL (<150); Uric Acid 6.7 mg/dL (2.5-8.0)
[2025-05-20] MEDS: FUROSEMIDE 100 MG/10 ML VIAL IV SCH (10:03)
[2025-05-20] MEDS: CLOPIDOGREL 75 MG TABLET PO SCH (11:14)
[2025-05-20] MEDS: HEPARIN 5,000 UNIT/ML VIAL SQ SCH (14:43)
[2025-05-20 16:44] LABS: VBG HCO3 27.9 mmol/L (24.0-28.0); VBG PCO2 48.1 mmHg (41.0-51.0); VBG PH 7.38 U (7.32-7.42); VBG PO2 57.0 mmHg (25.0-40.0)
[2025-05-20 17:05] LABS: Albumin 3.3 gm/dL (3.2-5.2); Anion Gap 8.0 (8.0-16.0); Blood Urea Nitrogen 28.0 mg/dL (8-23); Calcium 8.7 mg/dL (8.6-10.4); Carbon Dioxide 27.0 mmol/L (22-30); Chloride 103.0 mmol/L (96-108); Glucose 138.0 mg/dL (70-105); Phosphorous 2.5 mg/dL (2.5-4.5); Potassium 4.0 mmol/L (3.3-5.1); Sodium 138.0 mmol/L (133-145)
[2025-05-20] MEDS: ACETAMINOPHEN 1,000 MG/100 ML BAG IV SCH (18:18)
[2025-05-21 07:47] LABS: Albumin 3.1 gm/dL (3.2-5.2); Anion Gap 8.0 (8.0-16.0); Blood Urea Nitrogen 27 mg/dL (8-23); Calcium 8.9 mg/dL (8.6-10.4); Carbon Dioxide 28 mmol/L (22-30); Chloride 103 mmol/L (96-108); Glucose 98 mg/dL (70-105); Phosphorous 2.7 mg/dL (2.5-4.5); Potassium 3.9 mmol/L (3.3-5.1); Sodium 139 mmol/L (133-145)
[2025-05-21 07:53] LABS: Basophils # (Auto) 0.04 K/mcL (0.00-0.30); Basophils % (Auto) 0.6 % (0.0-2.0); Eosinophils # (Auto) 0.42 K/mcL (0.00-0.70); Eosinophils % (Auto) 6.4 % (0.0-7.0); Hematocrit 34.5 % (40.1-51.0); Hemoglobin 10.3 g/dL (13.7-17.5); Lymphocytes # (Auto) 1.27 K/mcL (1.50-4.80); Lymphocytes % (Auto) 19.3 % (15.5-49.0); Mean Corpuscular HGB Conc 29.9 g/dL (31.0-36.0); Monocytes # (Auto) 0.71 K/mcL (0.10-0.90); Monocytes % (Auto) 10.8 % (1.0-12.0); Neutrophils % (Auto) 62.7 % (38.0-78.0); Platelet Count 254 K/mcL (140-440); RBC 3.84 M/mcL (4.63-6.08); WBC 6.6 K/mcL (4.5-11.0)
[2025-05-21 14:14] VITALS: TEMP 97.9; O2SAT 91
== END 2025-05-21 13:57 | DRG 480 ==
LOC: ED 04:10 → MEDSUR 08:08 → ICU 17:02
PROVIDERS: ADMIT Internal Medicine; ATTEND Internal Medicine